=== PATIENT | male | born 1975 | race Caucasian/White ===

== ENCOUNTER 2021-08-01 13:35 | Emergency (ER) | payer MEDICAID ==
[~2021-08-01] VITALS: Ht 170.2 cm; Wt 100.0 kg
[2021-08-01 14:06] VITALS: BP 126/90
== END 2021-08-01 17:31 | disposition home or self-care (01) ==
LOC: ER 13:36
DX: M77.8 Other enthesopathies, not elsewhere classified (principal)
CPT/HCPCS: 73030; 99283

== ENCOUNTER 2021-08-08 13:12 | Emergency (ER) | payer MEDICAID ==
[~2021-08-08] VITALS: Ht 170.2 cm; Wt 97.7 kg
[2021-08-08 13:22] VITALS: BP 137/99
[2021-08-08] MEDS ORDERED: LIDO700A32 TOP (14:55)
[2021-08-08] MEDS ORDERED: NAPR-56 PO (14:55)
[2021-08-08] MEDS ORDERED: DICL20GE TOP (14:55)
[2021-08-08] MEDS ORDERED: ketorolac trometh inj. 60 MG/2 ML VIAL IM ONE (15:05)
== END 2021-08-08 15:16 | disposition home or self-care (01) ==
LOC: ER 13:13
DX: M25.512 Pain in left shoulder (principal); Z79.899 Other long term (current) drug therapy
CPT/HCPCS: 96372; 99283; J1885

== ENCOUNTER 2021-08-11 21:42 | Emergency (ER) | payer MEDICAID ==
[~2021-08-11] VITALS: Ht 170.2 cm; Wt 106.0 kg
[~2021-08-11 21:42] MED LIST: DICL20GE TOP; LIDO700A32 TOP; NAPR-56 PO
[2021-08-11 23:20] VITALS: BP 153/126
--- NOTE | 2021-08-12 00:56 | NUR ---
THIS PATIENT HAD LEFT THE ED ON MULTIPLE OCCASIONS DESPITE BEING ADVISED THAT HE NEEDED TO PLEASE STAY IN THE WAITING ROOM PATIENT HAS RETURNED FOR THE SECOND TIME AND HAS BEEN ROOMED IN RM 15.
[2021-08-12] MEDS ORDERED: ketorolac trometh inj. 60 MG/2 ML VIAL IM ONE ×2 (02:10→02:55)
== END 2021-08-12 03:21 | disposition home or self-care (01) ==
LOC: ER 21:42
DX: M25.512 Pain in left shoulder (principal); X58.XXXA Exposure to other specified factors, initial encounter; Y93.89 Activity, other specified; Y92.89 Other specified places as the place of occurrence of the external cause; Y99.8 Other external cause status
CPT/HCPCS: 96372; 99283; J1885